=== PATIENT | male | born 1950 | race Caucasian/White ===

== ENCOUNTER 2018-05-27 08:17 | Observation (INO) ==
--- NOTE | 2018-05-27 08:57 | Emergency Department Note ---
Disposition Clinical Impression: Headache, Pneumonia, Acute urinary retention Disposition: Admitted As Inpatient Condition: Fair General Adult HPI - General Chief complaint: ED Headache Stated complaint: headache, unable to void Time Seen by Provider: 05/27/18 08:24 Source: patient Limitations: no limitations Nursing Notes Reviewed: Yes Vital Signs Reviewed: Yes - History of Present Illness Pain Scale: 0 - Related Data Home Medications Medication Instructions Recorded Confirmed Aspirin [Adult Aspirin] 81 mg PO DAILY 05/27/18 05/27/18 Atorvastatin Calcium [Lipitor] 20 mg PO DAILY 05/27/18 05/27/18 Losartan Potassium [Cozaar] 100 mg PO DAILY 05/27/18 05/27/18 Meloxicam 15 mg PO DAILY 05/27/18 05/27/18 Metoprolol [Lopressor] 25 mg PO BID 05/27/18 05/27/18 metFORMIN [Glucophage] 500 mg PO BID 05/27/18 05/27/18 Allergies Allergy/AdvReac Type Severity Reaction Status Date / Time No Known Allergies Allergy Verified 05/27/18 08:18 Past Medical History - Past Medical History Medical history: Reports: diabetes, hyperlipidemia, hypertension Psychiatric history: Reports: no psych history - Social History Smoking Status: Never smoker Smokeless Tobacco Status: No Alcohol use: Reports: none Drug use: Reports: none Physical Exam - General Limitations: no limitations General appearance: alert, in no apparent distress Course Vital Signs Temperature 99.5 F 05/27/18 08:18 Pulse Rate 121 05/27/18 08:18 Respiratory Rate 18 05/27/18 08:18 Blood Pressure 159/96 05/27/18 08:18 O2 Sat by Pulse Oximetry 96 05/27/18 08:18 Temperature 98.2 F 05/27/18 11:47 Pulse Rate 90 05/27/18 11:47 Respiratory Rate 18 05/27/18 11:47 Blood Pressure 139/83 05/27/18 11:47 O2 Sat by Pulse Oximetry 94 05/27/18 11:47 Oxygen Delivery Oxygen Delivery Room Air Medical Decision Making - [facility] Narrative Medical decision making narrative: Chest X-Ray 05/27/18 08:52 IMPRESSION: Right lower lobe infiltrate suspicious for pneumonia. D/ / Silvano Avitia MD / Silvano Avitia MD Interpreting Provider: Silvano Avitia MD Patient does have a pneumonia is been started on antibiotics for that. He did have urinary retention more than 200 mL a Maxwell is placed. Urine does not show any bacteria. We will admit him at this time. He is in agreement with this plan. Impressions acute urinary retention, with right lower lobe pneumonia and started on antibiotics. He also has a leukocytosis the white count greater than 18,000. Lactate is normal. - Lab Data Result diagrams: 05/27/18 09:21 05/27/18 09:21 Lab Results 05/27/18 05/27/18 05/27/18 Range/Units 09:15 09:21 09:21 WBC 19.2 H (4.3-11.1) K/mcL RBC 4.69 (4.19-5.50) M/mcL Hgb 15.0 (12.9-16.9) g/dL Hct 43.1 (37.5-50.1) % MCV 91.9 (83.0-100.0) fL MCH 32.0 (28.0-33.3) pg MCHC 34.8 (31.6-35.5) g/dL RDW 12.6 (11.5-14.5) % Plt Count 186 (140-400) K/mcL MPV 10.3 (9.4-12.4) fL Immature Gran % 0.5 (0-4) % Seg Neutrophils % 82.2 % Lymphocytes % 6.6 % Monocytes % 10.4 % Eosinophils % 0.0 % Basophils % 0.3 % Neutrophils # 15.8 H (1.6-8.9) K/mcL Lymphocytes # 1.3 (0.6-4.6) K/mcL Monocytes # 2.0 H (0.0-1.3) K/mcL Eosinophils # 0.0 (0.0-0.6) K/mcL Basophils # 0.1 (0.0-0.2) K/mcL Sodium 131 L (136-145) mEq/L Potassium 3.7 (3.5-5.1) mEq/L Chloride 95 L (98-107) mEq/L Carbon Dioxide 26 (23-29) mEq/L BUN 14 (8-23) mg/dL Creatinine 1.00 (0.70-1.30) mg/dL Est GFR ( Amer) > 60 (> 60) Est GFR (Non-Af Amer) > 60 (> 60) BUN/Creatinine Ratio 14 (6-26) Glucose 166 H (70-105) mg/dL Calculated Osmolality 276 L (280-300) Lactic Acid (0.5-2.2) mmol/L Calcium 9.6 (8.6-10.3) mg/dL Phosphorus 2.2 L (2.7-4.5) mg/dL Magnesium 1.7 (1.6-2.6) mg/dL Urine Color Yellow (Yellow) Urine Clarity Clear (Clear) Urine pH 7.0 (5.0-8.0) pH Units Ur Specific [place] 1.011 (1.010-1.025) Urine Protein 30 H (Neg-Trace) mg/dL Urine Glucose (UA) Normal (Normal) mg/dL Urine Ketones Negative (Negative) mg/dL Urine Blood Negative (Negative) Urine Nitrite Negative (Negative) Urine Bilirubin Negative (Negative) Urine Urobilinogen 2.0 H (Normal) mg/dL Ur Leukocyte Esterase Negative (Negative) Urine Microscopic RBC 5-15 H (0-3) per hpf Urine Microscopic WBC 0-3 (0-3) per hpf Ur Squamous Epith Cells Moderate H (None-Few) per lpf Urine Bacteria None Seen (None-Few) per hpf Hyaline Casts None Seen (None-Few) per lpf Ur Culture Indicated? NO (NO) 05/27/18 Range/Units 09:21 WBC (4.3-11.1) K/mcL RBC (4.19-5.50) M/mcL Hgb (12.9-16.9) g/dL Hct (37.5-50.1) % MCV (83.0-100.0) fL MCH (28.0-33.3) pg MCHC (31.6-35.5) g/dL RDW (11.5-14.5) % Plt Count (140-400) K/mcL MPV (9.4-12.4) fL Immature Gran % (0-4) % Seg Neutrophils % % Lymphocytes % % Monocytes % % Eosinophils % % Basophils % % Neutrophils # (1.6-8.9) K/mcL Lymphocytes # (0.6-4.6) K/mcL Monocytes # (0.0-1.3) K/mcL Eosinophils # (0.0-0.6) K/mcL Basophils # (0.0-0.2) K/mcL Sodium (136-145) mEq/L Potassium (3.5-5.1) mEq/L Chloride (98-107) mEq/L Carbon Dioxide (23-29) mEq/L BUN (8-23) mg/dL Creatinine (0.70-1.30) mg/dL Est GFR ( Amer) (> 60) Est GFR (Non-Af Amer) (> 60) BUN/Creatinine Ratio (6-26) Glucose (70-105) mg/dL Calculated Osmolality (280-300) Lactic Acid 1.5 (0.5-2.2) mmol/L Calcium (8.6-10.3) mg/dL Phosphorus (2.7-4.5) mg/dL Magnesium (1.6-2.6) mg/dL Urine Color (Yellow) Urine Clarity (Clear) Urine pH (5.0-8.0) pH Units Ur Specific [place] (1.010-1.025) Urine Protein (Neg-Trace) mg/dL Urine Glucose (UA) (Normal) mg/dL Urine Ketones (Negative) mg/dL Urine Blood (Negative) Urine Nitrite (Negative) Urine Bilirubin (Negative) Urine Urobilinogen (Normal) mg/dL Ur Leukocyte Esterase (Negative) Urine Microscopic RBC (0-3) per hpf Urine Microscopic WBC (0-3) per hpf Ur Squamous Epith Cells (None-Few) per lpf Urine Bacteria (None-Few) per hpf Hyaline Casts (None-Few) per lpf Ur Culture Indicated? (NO) Attestation Statement - Attestation Attestation: This documentation is done with the assistance of Dragon dictation. Despite efforts made to ensure accuracy, there may be inaccuracies in delinquent notice machine operator or spelling and typographical errors. I examined this patient and my medical decision-making was reviewed with the Resident Physician. I agree with the documented findings, disposition and treatment plan as described except to the patient seen and evaluated on arrival with Dr. Green and myself, I agree with her evaluation and management plan, I supervised the care of the patient's stay. Patient's had subjective fevers at home, frontal headache and difficulty with urination. The headache and chills has been going on for last 3 days, unable to urinate completely for the past day. No new meds, no history of urinary incontinence or retention. He meets SIRS criteria. We will check a bedside ultrasound of his bladder to see if he has a full bladder. Chest x-ray, labs and reassess. He will probably need admission.
--- NOTE | 2018-05-27 08:59 | Emergency Department Note ---
Disposition Clinical Impression: Acute urinary retention Headache Qualifiers: Headache type: unspecified Headache chronicity pattern: unspecified pattern Intractability: not intractable Qualified Code(s): R51 - Headache Pneumonia Qualifiers: Pneumonia type: due to unspecified organism Laterality: right Lung location: lower lobe of lung Qualified Code(s): J18.1 - Lobar pneumonia, unspecified organism Disposition: Admitted As Inpatient Condition: Fair Time of Disposition: 10:30 General Adult HPI - General Chief complaint: ED Headache Stated complaint: headache, unable to void Time Seen by Provider: 05/27/18 08:24 Source: patient, family Mode of arrival: ambulatory Limitations: no limitations Nursing Notes Reviewed: Yes Vital Signs Reviewed: Yes - History of Present Illness HPI Narrative: 67yo male presents c/o dull intermittent frontal new onset headache for 3 days, non-productive cough and nausea for 2 days, subjective fever/chills and urinary incontinence since last night. Patient denies sick contacts, or recent changes in life. Patient has been fatigued, had less of an appetite and less active than normal for the past few days. Patient states his cough makes his headache worse. Patient denies hx of headaches. Patient had night sweats last night that he woke up "drenched." He had urinary dribbling last night before he could make it to that bathroom, denies hx of enlarged prostate, denies overflow with cough. He has not taken anything for his symptoms. Patient denies chest pain/ pressure or SOB, denies heart problems, though his mother at 81yo and 2 other relatives had MIs. Patient has HTN, non-insulin dept T2DM and high cholesterol. Sees PCP every 3-6mo. Denies vomiting, back pain. Pain Scale: 0 Associated symptoms: Reports: cough, fever/chills, headaches, loss of appetite, malaise, other (nausea) Treatments Prior to Arrival: none - Related Data Home Medications Medication Instructions Recorded Confirmed Aspirin [Adult Aspirin] 81 mg PO DAILY 05/27/18 05/27/18 Atorvastatin Calcium [Lipitor] 20 mg PO DAILY 05/27/18 05/27/18 Losartan Potassium [Cozaar] 100 mg PO DAILY 05/27/18 05/27/18 Meloxicam 15 mg PO DAILY 05/27/18 05/27/18 Metoprolol [Lopressor] 25 mg PO BID 05/27/18 05/27/18 metFORMIN [Glucophage] 500 mg PO BID 05/27/18 05/27/18 Allergies Allergy/AdvReac Type Severity Reaction Status Date / Time No Known Allergies Allergy Verified 05/27/18 08:18 All systems ED: reviewed and negative except as stated. Constitutional: Reports: as per HPI, fever, chills, night sweats, other (fatigue ). Denies: weight change Eyes: Reports: eye discharge. Denies: vision change ENT ED: Denies: ear pain, throat pain, dental pain, hearing loss, epistaxis, congestion, dysphagia Cardiovascular: Reports: as per HPI. Denies: chest pain, dyspnea on exertion Respiratory: Reports: as per HPI, cough. Denies: dyspnea, wheezes, hemoptysis, stridor, sputum production Gastrointestinal: Reports: nausea. Denies: vomiting, diarrhea Genitourinary: Reports: other (dribbling). Denies: hematuria, discharge, genital lesions Musculoskeletal: Denies: back pain, neck pain, arthralgia, myalgia Integumentary: Denies: rash, abrasion, lesions Neurological: Reports: headache. Denies: weakness Psychiatric: Denies: anxiety, depression, suicidal thoughts, homicidal thoughts , auditory hallucinations, visual hallucinations Endocrine: Reports: fatigue Hematological/Lymphatic: Denies: easy bleeding, easy bruising Allergic/Immunologic: Denies: facial swelling, urticaria Past Medical History - Past Medical History Attestation: Yes The following information was validated with the patient. Source: patient Medical history: Reports: diabetes, hyperlipidemia, hypertension Surgical history: Reports: no surgical history Psychiatric history: Reports: no psych history - Social History Smoking Status: Never smoker Smokeless Tobacco Status: No Alcohol use: Reports: none Drug use: Reports: none Mother Family Member Age at : 81 Family Member Cause of : [place] Physical Exam - General Limitations: no limitations General appearance: alert, in no apparent distress - Head Head exam: atraumatic, normocephalic, normal inspection, other (normal ROM, no pain) - Eye Eye exam: Present: normal appearance, PERRL, EOMI - ENT ENT exam: normal exam, normal oropharynx, mucous membranes moist - Neck Neck exam: Present: normal inspection, full ROM - Chest Chest inspection: Present: normal inspection, symmetric chest wall rise - Respiratory Respiratory exam: Present: normal lung sounds bilaterally - Cardiovascular Cardiovascular exam: Present: tachycardia - Abdominal Exam Abdominal exam: Present: soft, Non-Tender. Absent: tenderness, distention, guarding, rebound, rigidity - Extremities Exam Extremities exam: Present: normal inspection, full ROM. Absent: tenderness, pedal edema - Neurological Exam Neurological exam: Present: alert, oriented X3, CN II-XII intact - Psychiatric Psychiatric exam: Present: normal affect, normal mood - Skin Skin exam: Present: warm, dry, intact, normal color Course Course Narrative: Patient seen and examined. Cough along with headache and states his urine was dribbling last night. Patient is tachycardic and appears uncomfortable. We will do septic workup on the patient. Lab work, EKG, chest x-ray, urine analysis ordered. We will also do a bedside ED ultrasound to evaluate for urinary retention. - Reevaluation(s) Reevaluation #1: ED bedside ultrasound shows residual postvoid urinary retention. A Maxwell catheter was ordered. Chest x-ray shows signs of a right lower lobe pneumonia. We will go ahead and start Levaquin. Patient is receiving a 2 L IV fluid bolus. We will see if his heart rate response to this. We will admit for community-acquired pneumonia, sepsis. Time: 10:17 Reevaluation #2: I discussed with the hospitalist Dr. Gómez who has accepted patient for admission. Time: 10:30 Vital Signs Temperature 99.5 F 05/27/18 08:18 Pulse Rate 121 05/27/18 08:18 Respiratory Rate 18 05/27/18 08:18 Blood Pressure 159/96 05/27/18 08:18 O2 Sat by Pulse Oximetry 96 05/27/18 08:18 Temperature 98.2 F 05/27/18 11:47 Pulse Rate 90 05/27/18 11:47 Respiratory Rate 18 05/27/18 11:47 Blood Pressure 139/83 05/27/18 11:47 O2 Sat by Pulse Oximetry 94 05/27/18 11:47 Oxygen Delivery Oxygen Delivery Room Air Medical Decision Making - Medical Records Medical records reviewed: Yes I reviewed the patient's medical records. - Lab Data Lab results reviewed: Yes I reviewed the patient's lab results. Result diagrams: 05/27/18 09:21 05/27/18 09:21 Lab Results 05/27/18 05/27/18 05/27/18 Range/Units 09:15 09:21 09:21 WBC 19.2 H (4.3-11.1) K/mcL RBC 4.69 (4.19-5.50) M/mcL Hgb 15.0 (12.9-16.9) g/dL Hct 43.1 (37.5-50.1) % MCV 91.9 (83.0-100.0) fL MCH 32.0 (28.0-33.3) pg MCHC 34.8 (31.6-35.5) g/dL RDW 12.6 (11.5-14.5) % Plt Count 186 (140-400) K/mcL MPV 10.3 (9.4-12.4) fL Immature Gran % 0.5 (0-4) % Seg Neutrophils % 82.2 % Lymphocytes % 6.6 % Monocytes % 10.4 % Eosinophils % 0.0 % Basophils % 0.3 % Neutrophils # 15.8 H (1.6-8.9) K/mcL Lymphocytes # 1.3 (0.6-4.6) K/mcL Monocytes # 2.0 H (0.0-1.3) K/mcL Eosinophils # 0.0 (0.0-0.6) K/mcL Basophils # 0.1 (0.0-0.2) K/mcL Sodium 131 L (136-145) mEq/L Potassium 3.7 (3.5-5.1) mEq/L Chloride 95 L (98-107) mEq/L Carbon Dioxide 26 (23-29) mEq/L BUN 14 (8-23) mg/dL Creatinine 1.00 (0.70-1.30) mg/dL Est GFR ( Amer) > 60 (> 60) Est GFR (Non-Af Amer) > 60 (> 60) BUN/Creatinine Ratio 14 (6-26) Glucose 166 H (70-105) mg/dL Calculated Osmolality 276 L (280-300) Lactic Acid (0.5-2.2) mmol/L Calcium 9.6 (8.6-10.3) mg/dL Phosphorus 2.2 L (2.7-4.5) mg/dL Magnesium 1.7 (1.6-2.6) mg/dL Urine Color Yellow (Yellow) Urine Clarity Clear (Clear) Urine pH 7.0 (5.0-8.0) pH Units Ur Specific [place] 1.011 (1.010-1.025) Urine Protein 30 H (Neg-Trace) mg/dL Urine Glucose (UA) Normal (Normal) mg/dL Urine Ketones Negative (Negative) mg/dL Urine Blood Negative (Negative) Urine Nitrite Negative (Negative) Urine Bilirubin Negative (Negative) Urine Urobilinogen 2.0 H (Normal) mg/dL Ur Leukocyte Esterase Negative (Negative) Urine Microscopic RBC 5-15 H (0-3) per hpf Urine Microscopic WBC 0-3 (0-3) per hpf Ur Squamous Epith Cells Moderate H (None-Few) per lpf Urine Bacteria None Seen (None-Few) per hpf Hyaline Casts None Seen (None-Few) per lpf Ur Culture Indicated? NO (NO) 05/27/18 Range/Units 09:21 WBC (4.3-11.1) K/mcL RBC (4.19-5.50) M/mcL Hgb (12.9-16.9) g/dL Hct (37.5-50.1) % MCV (83.0-100.0) fL MCH (28.0-33.3) pg MCHC (31.6-35.5) g/dL RDW (11.5-14.5) % Plt Count (140-400) K/mcL MPV (9.4-12.4) fL Immature Gran % (0-4) % Seg Neutrophils % % Lymphocytes % % Monocytes % % Eosinophils % % Basophils % % Neutrophils # (1.6-8.9) K/mcL Lymphocytes # (0.6-4.6) K/mcL Monocytes # (0.0-1.3) K/mcL Eosinophils # (0.0-0.6) K/mcL Basophils # (0.0-0.2) K/mcL Sodium (136-145) mEq/L Potassium (3.5-5.1) mEq/L Chloride (98-107) mEq/L Carbon Dioxide (23-29) mEq/L BUN (8-23) mg/dL Creatinine (0.70-1.30) mg/dL Est GFR ( Amer) (> 60) Est GFR (Non-Af Amer) (> 60) BUN/Creatinine Ratio (6-26) Glucose (70-105) mg/dL Calculated Osmolality (280-300) Lactic Acid 1.5 (0.5-2.2) mmol/L Calcium (8.6-10.3) mg/dL Phosphorus (2.7-4.5) mg/dL Magnesium (1.6-2.6) mg/dL Urine Color (Yellow) Urine Clarity (Clear) Urine pH (5.0-8.0) pH Units Ur Specific [place] (1.010-1.025) Urine Protein (Neg-Trace) mg/dL Urine Glucose (UA) (Normal) mg/dL Urine Ketones (Negative) mg/dL Urine Blood (Negative) Urine Nitrite (Negative) Urine Bilirubin (Negative) Urine Urobilinogen (Normal) mg/dL Ur Leukocyte Esterase (Negative) Urine Microscopic RBC (0-3) per hpf Urine Microscopic WBC (0-3) per hpf Ur Squamous Epith Cells (None-Few) per lpf Urine Bacteria (None-Few) per hpf Hyaline Casts (None-Few) per lpf Ur Culture Indicated? (NO) - Radiology Data Radiology results reviewed: Yes I reviewed the patient's radiology results. Chest X-Ray 05/27/18 08:52 IMPRESSION: Right lower lobe infiltrate suspicious for pneumonia. D/ / Silvano Avitia MD / Silvano Avitia MD Interpreting Provider: Silvano Avitia MD - EKG Data EKG #1 EKG attestation: Yes I reviewed and interpreted this EKG. EKG shows normal: sinus rhythm Rate: tachycardia When compared to previous EKG there are: previous EKG unavailable
[2018-05-27] MEDS: 0.9 % Sodium Chloride 1,000 ML IVC SCH ×2 (09:17→10:03)
[2018-05-27 09:35] LABS: Bacteria,Urine None Seen per hpf (None-Few); Bilirubin,Urine Negative (Negative); Blood,Urine Negative (Negative); Clarity,Urine Clear (Clear); Color,Urine Yellow (Yellow); Glucose,Urine (UA) Normal (Normal); Hyaline Casts,Urine None Seen per lpf (None-Few); Ketones,Urine Negative (Negative); Leukocyte Esterase,Urine Negative (Negative); Nitrite,Urine Negative (Negative); Protein,Urine 30 mg/dL (Neg-Trace); Specific Gravity,Urine 1.011 (1.010-1.025); Squamous Epithelial Cell,Urine Moderate per lpf (None-Few); WBC,Urine 0-3 per hpf (0-3)
[2018-05-27 09:43] LABS: Basophils # 0.1 K/mcL (0.0-0.2); Basophils % 0.3 %; Hematocrit 43.1 % (37.5-50.1); Immature Granulocytes % 0.5 % (0-4); Lymphocytes # 1.3 K/mcL (0.6-4.6); Lymphocytes % 6.6 %; Mean Corpuscular HGB Conc 34.8 g/dL (31.6-35.5); Mean Corpuscular Volume 91.9 fL (83.0-100.0); Mean Platelet Volume 10.3 fL (9.4-12.4); Monocytes % 10.4 %; Neutrophils # 15.8 K/mcL (1.6-8.9); Platelet Count 186 K/mcL (140-400); Red Blood Count 4.69 M/mcL (4.19-5.50); Red Cell Distribution Width 12.6 % (11.5-14.5); Segmented Neutrophils % 82.2 %
[2018-05-27] MEDS ORDERED: Levofloxacin 750 MG/150 ML 750 MG/150 ML BAG IVPB ONE (09:51)
[2018-05-27 09:52] LABS: BUN/Creatinine Ratio 14 (6-26); Blood Urea Nitrogen 14 mg/dL (8-23); Calcium 9.6 mg/dL (8.6-10.3); Carbon Dioxide 26 mEq/L (23-29); Chloride 95 mEq/L (98-107); Glucose 166 mg/dL (70-105); Magnesium 1.7 mg/dL (1.6-2.6); Osmolality,Calculated 276 (280-300); Phosphorous 2.2 mg/dL (2.7-4.5); Potassium 3.7 mEq/L (3.5-5.1); Sodium 131 mEq/L (136-145); eGFR For Non-African Americans > 60 (> 60)
[2018-05-27] MEDS ORDERED: Naloxone 0.4 MG/ML INJ IVP PRN (12:21)
[2018-05-27] MEDS ORDERED: Acetaminophen 325 MG TABLET PO PRN (12:21)
--- NOTE | 2018-05-27 12:21 | Internal Med History&Physical ---
Date of Encounter: 05/27/18 Time of Encounter: 13:27 Internal Medicine - H&P: HPI Chief complaint: Generalized weakness, fatigue, malaise with decreased urine output Admitted From: Emergency Dept Plans for Post Hospital Care: Home History of present illness: Mr. Crenshaw is a 67 year old male patient with a history of hypertension, diabetes who presented to the ER with complaints of generalized malaise, fatigue and decreased urination. Symptoms have been going on for the past 3 days. He also had an episode of fever, diaphoresis last night. He denies any chest pain or palpitations. He does have some cough. No sputum production. He has also noticed decrease in his urine output. No dysuria reported. He has not had similar symptoms in the past. He denies any lightheadedness or dizziness. Past Med Surg Social Fam HX - Past Medical History Attestation: Yes The following information was validated with the patient. Source: patient Medical history: diabetes, hyperlipidemia, hypertension Psychiatric history: no psych history - Past Surgical History Surgical History: no surgical history - Social History Smoking Status: Never smoker Smokeless Tobacco Status: No Alcohol use: none Drug use: none - Family History Mother Age at : 81 Cause of : [place] Internal Medicine - H&P: Meds Aspirin [Adult Aspirin] 81 mg PO DAILY 05/27/18 [History] Atorvastatin Calcium [Lipitor] 20 mg PO DAILY 05/27/18 [History] Losartan Potassium [Cozaar] 100 mg PO DAILY 05/27/18 [History] Meloxicam 15 mg PO DAILY 05/27/18 [History] Metoprolol [Lopressor] 25 mg PO BID 05/27/18 [History] metFORMIN [Glucophage] 500 mg PO BID 05/27/18 [History] 3 Allergy/AdvReac Type Severity Reaction Status Date / Time No Known Allergies Allergy Verified 05/27/18 08:18 All Systems PM: A 10-system review of systems was performed and is negative for pertinent findings except as documented above in the HPI. - Constitutional Constitutional: fatigue, malaise, no chills, no fever(s), no night sweats - EENT Eyes: no change in vision, no discharge, no pain, no photophobia Ears: no ear discharge, no ear pain, no tinnitus Nose, mouth and throat: no dysphagia, no nasal discharge, no neck pain, no sore throat - Cardiovascular Cardiovascular ROS IM: no chest pain, no diaphoresis, no dyspnea, no lightheadedness, no palpitations, no syncope - Respiratory Respiratory: cough, no dyspnea, no wheezing, no excessive phlegm production - Gastrointestinal Gastrointestinal: no abdominal pain, no diarrhea, no hematemesis, no hematochezia, no melena, no nausea, no vomiting - Musculoskeletal Musculoskeletal ROS IM: no numbness, no tingling - Integumentary Integumentary IM: no rash, no unusual bruising - Neurological Neurological ROS: headache(s), no confusion, no convulsions, no focal weakness, no numbness, no tingling, no tremor(s) - Hematologic/Lymphatic Hematologic/Lymphatic: no easy bruising - Constitutional Vitals: Temp Pulse Resp BP Pulse Ox 98.2 F 90 18 139/83 94 05/27/18 11:47 05/27/18 11:47 05/27/18 11:47 05/27/18 11:47 05/27/18 11:47 General appearance: Present: cooperative, A&O X 3, pleasant, answers questions appropriately - Neck Neck exam general surgery: Present: supple, trachea midline. Absent: lymphadenopathy - Respiratory Respiratory exam: Absent: accessory muscle use, rales, rhonchi, wheezes Additional comments: Coarse breath sounds in right lower lobe - Cardiovascular Cardiovascular exam: Present: RRR, +S1, +S2. Absent: diastolic murmur, gallop, rubs, systolic murmur - GI/Abdominal GI/Abdominal exam: Present: normal bowel sounds, soft, no peritoneal signs. Absent: distended, tenderness - Extremities Exam Extremities exam: Present: warm, radial pulses palpable and symmetrical. Absent : calf tenderness, cyanotic, pedal edema - Neurological Exam Neurological exam: Present: CN II-XII intact, oriented X3, no focal deficits. Absent: facial droop, speech deficit Internal Med - H&P Results - Labs CBC & Chem 7: 05/27/18 09:21 05/27/18 09:21 - EKG Data -: EKG Interpreted by Myself EKG shows normal: sinus rhythm Rate: tachycardia - Impressions Impressions Chest X-Ray 05/27/18 08:52 IMPRESSION: Right lower lobe infiltrate suspicious for pneumonia. D/ / Silvano Avitia MD / Silvano Avitia MD Interpreting Provider: Silvano Avitia MD - Assessment and plan (1) Sepsis Current Visit: Yes Status: Suspected Assessment and plan: Patient presenting with sepsis related to pneumonia. Continue IV antibiotics. IV fluids. Monitor vital signs closely. Follow culture results. Lactic acid is normal. Moderate risk for complications. Qualifiers: Sepsis type: Pneumococcus Qualified Code(s): A40.3 - Sepsis due to Streptococcus pneumoniae (2) Pneumonia Current Visit: Yes Status: Acute Assessment and plan: On Levaquin. Follow culture results. We will check urine for strep and legionella antigens. Qualifiers: Pneumonia type: due to Pneumococcus Laterality: right Lung location: lower lobe of lung Qualified Code(s): J13 - Pneumonia due to Streptococcus pneumoniae (3) Acute urinary retention Current Visit: Yes Status: Acute Assessment and plan: Likely due to acute sepsis. BUN and creatinine are normal. Continue IV hydration. Maxwell catheter placed in the ER. Monitor input and output (4) Headache Current Visit: Yes Status: Acute Assessment and plan: Improved now. Qualifiers: Headache type: unspecified Headache chronicity pattern: acute headache Intractability: not intractable Qualified Code(s): R51 - Headache (5) Essential hypertension Current Visit: Yes Status: Acute Assessment and plan: Blood pressure elevated this morning. Resume home medications. Monitor blood pressure closely. (6) Diabetes mellitus Current Visit: Yes Status: Acute Assessment and plan: Will place patient on diabetic diet and sliding scale insulin. Monitor blood sugars. Qualifiers: Diabetes mellitus type: type 2 Diabetes mellitus job development specialist insulin use: without job development specialist use Diabetes mellitus complication status: without complication Qualified Code(s): E11.9 - Type 2 diabetes mellitus without complications - Time Spent With Patient Total time spent is greater than 50% in coordination of care (as documented) at patient's floor/unit and/or counseling patient:
[2018-05-27] MEDS ORDERED: Dextrose Gel 15 GM/37.5 ML TUBE PO PRN ×2 (12:23)
[2018-05-27] MEDS ORDERED: D5% in Water 1,000 ML IVC PRN (12:23)
[2018-05-27] MEDS ORDERED: *HR* Dextrose 50 % in Water (Syg) 50 ML SYRINGE IVP PRN (12:23)
[2018-05-27] MEDS ORDERED: Ringers Solution, Lactated 1,000 ML IVC SCH (13:45)
[2018-05-27 13:53] LABS: Albumin 3.8 g/dL (3.5-5.7); Albumin/Globulin Ratio 1.5 (1.1-2.2); Bilirubin,Direct 0.4 mg/dL (0.0-0.2); Bilirubin,Indirect 1.2 mg/dL (0.0-1.2); Bilirubin,Total 1.6 mg/dL (0.3-1.0); Globulin 2.5 g/dL (2.4-3.5); Total Protein 6.3 g/dL (6.4-8.9)
[2018-05-27] MEDS: *HR* Heparin 5,000 UNIT/ML VIAL SQ SCH (16:48)
[2018-05-27] MEDS: Insulin LISPRO 300 UNITS/3 ML VIAL SQ SCH (16:52)
[2018-05-27] MEDS ORDERED: Melatonin 3 MG TABLET PO PRN (18:37)
[2018-05-27] MEDS ORDERED: Ondansetron 4 MG/2 ML VIAL IVP PRN (18:41)
[2018-05-27] MEDS ORDERED: Insulin LISPRO 300 UNITS/3 ML VIAL SQ SCH (21:00)
[2018-05-28 05:26] LABS: Basophils % 0.3 %; Eosinophils # 0.1 K/mcL (0.0-0.6); Eosinophils % 0.4 %; Hematocrit 36.1 % (37.5-50.1); Immature Granulocytes % 0.3 % (0-4); Lymphocytes # 1.4 K/mcL (0.6-4.6); Mean Corpuscular HGB Conc 34.1 g/dL (31.6-35.5); Mean Corpuscular Hemoglobin 31.2 pg (28.0-33.3); Mean Corpuscular Volume 91.6 fL (83.0-100.0); Mean Platelet Volume 10.2 fL (9.4-12.4); Monocytes # 1.3 K/mcL (0.0-1.3); Platelet Count 163 K/mcL (140-400); Red Blood Count 3.94 M/mcL (4.19-5.50); Red Cell Distribution Width 12.7 % (11.5-14.5)
[2018-05-28 05:29] LABS: Hemoglobin 12.3 g/dL (12.9-16.9)
[2018-05-28 05:48] LABS: BUN/Creatinine Ratio 12 (6-26); Blood Urea Nitrogen 12 mg/dL (8-23); Calcium 8.8 mg/dL (8.6-10.3); Carbon Dioxide 26 mEq/L (23-29); Chloride 101 mEq/L (98-107); Glucose 151 mg/dL (70-105); Osmolality,Calculated 281 (280-300); Sodium 134 mEq/L (136-145); eGFR For Non-African Americans > 60 (> 60)
[2018-05-28] MEDS: *HR* Heparin 5,000 UNIT/ML VIAL SQ SCH (06:21)
[2018-05-28] MEDS: Insulin LISPRO 300 UNITS/3 ML VIAL SQ SCH ×2 (07:54→11:42)
[2018-05-28] MEDS ORDERED: Levofloxacin 750 MG/150 ML 750 MG/150 ML BAG IVPB SCH (09:00)
[2018-05-28] MEDS ORDERED: NON-FORMULARY MEDICATION 1 EACH EACH (Losartan Potassium [Cozaar] 100 MG) PO SCH (09:00)
[2018-05-28] MEDS ORDERED: Aspirin Enteric Coated 81 MG Tablet PO SCH (09:00)
[2018-05-28 11:06] VITALS: BP 111/67
--- NOTE | 2018-05-28 14:02 | Discharge Summary ---
- NOTES TO OUTPATIENT PROVIDER Notes to Outpatient Provider: Patient hospitalized for community-acquired pneumonia, urinary retention and dehydration. She was given IV fluids, IV antibiotics with improvement in his symptoms. He is stable to be discharged today on oral antibiotics. Orders not resulted at time of discharge: Pending orders 05/27/18 13:32 Legionella Antigen [RM] Routine S. Pneumoniae Antigen [RM] Routine Date of Encounter: 05/28/18 Time of Encounter: 14:00 - Discharge Diagnosis (1) Sepsis Priority: Primary Status: Suspected Qualifiers: Sepsis type: Pneumococcus Qualified Code(s): A40.3 - Sepsis due to Streptococcus pneumoniae (2) Pneumonia Priority: Secondary Status: Acute Qualifiers: Pneumonia type: due to Pneumococcus Laterality: right Lung location: lower lobe of lung Qualified Code(s): J13 - Pneumonia due to Streptococcus pneumoniae (3) Acute urinary retention Priority: Secondary Status: Resolved (4) Headache Priority: Secondary Status: Resolved Qualifiers: Headache type: unspecified Headache chronicity pattern: acute headache Intractability: not intractable Qualified Code(s): R51 - Headache (5) Essential hypertension Priority: Secondary Status: Acute (6) Diabetes mellitus Priority: Secondary Status: Acute Qualifiers: Diabetes mellitus type: type 2 Diabetes mellitus assisted insulin use: without assisted use Diabetes mellitus complication status: without complication Qualified Code(s): E11.9 - Type 2 diabetes mellitus without complications Hospital course: Mr. Crenshaw is a 67 year old male Patient with history of hypertension, hyperlipidemia and diabetes who was hospitalized with cellulitis involving her right lower leg. He had not been on antibiotics but was being followed by his primary care provider. He was started on IV antibiotics here and has had significant improvement in his erythema and pain. Venous Dopplers were checked and patient did not have any DVT. He is stable to be discharged home on oral antibiotics. He will follow up with his primary care provider for further management. Discharge discussed with: patient, nurse - Time Spent with Patient Total time spent providing and/or coordinating discharge services: Less than 30 minutes (25 min) - Discharge Medications Prescriptions: levoFLOXacin [Levaquin] 750 mg PO DAILY #8 tablet Tamsulosin [Flomax] 0.4 mg PO DAILY #30 cap.er.24h Home Medications: Aspirin [Adult Aspirin] 81 mg PO DAILY 05/27/18 [History] Atorvastatin Calcium [Lipitor] 20 mg PO DAILY 05/27/18 [History] Losartan Potassium [Cozaar] 100 mg PO DAILY 05/27/18 [History] Meloxicam 15 mg PO DAILY 05/27/18 [History] Metoprolol [Lopressor] 25 mg PO BID 05/27/18 [History] metFORMIN [Glucophage] 500 mg PO BID 05/27/18 [History] Tamsulosin [Flomax] 0.4 mg PO DAILY #30 cap.er.24h 05/28/18 [Rx] levoFLOXacin [Levaquin] 750 mg PO DAILY #8 tablet 05/28/18 [Rx] Allergies/Adverse Reactions: 3 Allergy/AdvReac Type Severity Reaction Status Date / Time No Known Allergies Allergy Verified 05/27/18 08: Date of admission: 05/27/18 11:01 Primary care physician: Bennett Wills DO Discharging clinician: Rebekah Aquino Anticipated date of discharge: 05/28/18 - Constitutional Vitals: Temp Pulse Resp BP Pulse Ox 98.4 F 83 16 111/67 94 05/28/18 11:05 05/28/18 11:05 05/28/18 11:05 05/28/18 11:05 05/28/18 11:05 General appearance: Present: cooperative, A&O X 3, pleasant, answers questions appropriately - Neck Neck exam general surgery: Present: supple, trachea midline. Absent: lymphadenopathy - Respiratory Respiratory exam: Present: CTAB. Absent: accessory muscle use, rales, rhonchi, wheezes - Cardiovascular Cardiovascular exam: Present: RRR, +S1, +S2. Absent: diastolic murmur, gallop, rubs, systolic murmur - GI/Abdominal GI/Abdominal exam: Present: normal bowel sounds, soft, no peritoneal signs. Absent: distended, tenderness - Extremities Exam Extremities exam: Present: warm, radial pulses palpable and symmetrical. Absent : calf tenderness, cyanotic, pedal edema - Neurological Exam Neurological exam: Present: CN II-XII intact, oriented X3, no focal deficits. Absent: pronater drift, facial droop, speech deficit - Patient Status Disposition: Home, Self-Care Condition: Good Functional capacity at discharge: independent ambulation Overall status at discharge: patient is progressing back to baseline - Discharge Instructions Instructions: Diabetes Mellitus Type 2 in Adults (DC), Chronic Hypertension (DC ), Pneumonia (DC) Follow Up With: Bennett Wills DO [Primary Care Provider] - (in 1-2 weeks) Hunter Hickman MD [Partnered Physician] - (in 1-2 weeks or as needed) - Diet and Activity Activity: increase activity as tolerated Diet: diabetic diet, low fat, low cholesterol, low salt diet
--- NOTE | 2018-05-29 12:41 | Electrocardiograph Report ---
[address] [address] Test Date: 2018-05-27 Pat Name: Jon Crenshaw Department: 102 Room: 2A Gender: M [employer]ist: : [id number] Requested By: Juany Green Order Number: [id number] Reading MD: Joseph Valdovinos Measurements Intervals [place] Rate: 123 P: MT: 0 QRS: -53 QRSD: 94 T: 59 QT: 296 QTc: 369 Interpretive Statements SINUS RHYTHM W PACS MARKED LEFT AXIS DEVIATION Poor R wave progression Electronically Signed On 05-29-2018 12:39:48 EDT by Joseph Valdovinos
== END 2018-05-28 15:00 | disposition home or self-care (01) ==
LOC: EMEROO 08:17 → 2ANU 08:17
PROVIDERS: ADMIT Family Medicine; ATTEND Family Medicine